=== PATIENT | male | born 1955 | race Caucasian/White ===

== ENCOUNTER 2023-04-09 08:02 | Day surgery (SDC) | payer MEDICARE, OTHER ==
[~2023-04-09 08:02] MED LIST: Lactated Ringers 1,000 ML IV PRN; Sodium Chloride 0.9% 10 ML Syringe FLUSH PRN
[2023-04-09] MEDS ORDERED: fentaNYL 100 MCG/2 ML SDV IV ONE (08:03)
[2023-04-09] MEDS ORDERED: Midazolam 1 MG/ML 2 ML SDV IV ONE (08:03)
[2023-04-09] MEDS ORDERED: acetaZOLAMIDE 500 MG Cap.ER PO ONE (09:00)
== END 2023-04-09 10:21 | disposition home or self-care (01) ==
LOC: FB.SDS 08:02
PROVIDERS: ATTEND Ophthalmology
DX: H26.9 Unspecified cataract (principal); I10 Essential (primary) hypertension; I48.19 Other persistent atrial fibrillation; E11.65 Type 2 diabetes mellitus with hyperglycemia; E78.00 Pure hypercholesterolemia, unspecified; Z79.01 Long term (current) use of anticoagulants; Z79.899 Other long term (current) drug therapy; Z79.84 Long term (current) use of oral hypoglycemic drugs; Z88.0 Allergy status to penicillin
CPT/HCPCS: 00142; 82947; A9270-GY; J2250; J3010; J7120; V2632

== ENCOUNTER 2023-04-23 10:11 | Day surgery (SDC) | payer MEDICARE, OTHER ==
[2023-04-23] MEDS ORDERED: Midazolam 1 MG/ML 2 ML SDV IV ONE (10:12)
[2023-04-23] MEDS ORDERED: fentaNYL 100 MCG/2 ML SDV IV ONE (10:12)
[2023-04-23] MEDS: Sodium Chloride 0.9% 10 ML Syringe FLUSH PRN (11:08)
[2023-04-23] MEDS: Lactated Ringers 1,000 ML IV SCH (11:08)
[2023-04-23] MEDS: acetaZOLAMIDE 500 MG Cap.ER PO ONE (11:55)
== END 2023-04-23 12:41 | disposition home or self-care (01) ==
LOC: FB.SDS 10:11
PROVIDERS: ATTEND Ophthalmology
DX: E11.36 Type 2 diabetes mellitus with diabetic cataract (principal); H26.9 Unspecified cataract; I10 Essential (primary) hypertension; I48.19 Other persistent atrial fibrillation; E78.00 Pure hypercholesterolemia, unspecified; Z79.01 Long term (current) use of anticoagulants; Z79.84 Long term (current) use of oral hypoglycemic drugs; Z79.899 Other long term (current) drug therapy; Z88.0 Allergy status to penicillin; Z90.49 Acquired absence of other specified parts of digestive tract; Z98.890 Other specified postprocedural states
CPT/HCPCS: 00142; 66984; 82947; A9270; J2250; J3010; J3490; J7120; V2632